=== PATIENT | female | born 1970 | race Caucasian/White ===

== ENCOUNTER 2017-09-29 19:31 | Emergency (ER) | payer OTHER ==
[~2017-09-29] VITALS: Ht 154.9 cm; Wt 77.6 kg
[~2017-09-29 19:31] MED LIST: CIPROFLOXACN500 MG PO; CLINDAMYCIN150 MG PO; CYTOTEC200 MCG PO; EXCEDRI1 OR; FIORICET PO; IMODIUM2 MG PO; KLONOPIN0.5 MG OR; LEVACET PO; LORTAB 7.5 PO; LORTAB5 PO; PAXIL CR25 MG OR; PAXIL30 MG PO; TYLENOL325 MG PO; XANAX0.25 MG PO; XANAX0.5 MG OR
[2017-09-29] MEDS ORDERED: PAROXETINE HCL30 MG PO (19:56)
[2017-09-29] MEDS ORDERED: ALPRAZOLAM0.5 M2 PO (19:57)
[2017-09-29 20:31] LABS: INFLUENZA A NONE DETECTED (NONE DETECT)
[2017-09-29 20:32] LABS: INFLUENZA B NONE DETECTED (NONE DETECT)
[2017-09-29] MEDS ORDERED: ZPAK PO (20:35)
[2017-09-29] MEDS ORDERED: CLARITIN10 M1 PO (20:35)
[2017-09-29 20:45] VITALS: BP 125/77
== END 2017-09-29 20:45 | disposition home or self-care (01) | DRG 153 ==
LOC: ED 19:31
PROVIDERS: Emergency Medicine
DX: J02.0 Streptococcal pharyngitis (principal); R50.9 Fever, unspecified; R59.9 Enlarged lymph nodes, unspecified

== ENCOUNTER 2017-10-04 18:44 | Emergency (ER) | payer OTHER ==
[~2017-10-04] VITALS: Ht 154.9 cm; Wt 72.0 kg
[~2017-10-04 18:44] MED LIST changes: +ALPRAZOLAM0.5 M2 PO; +CLARITIN10 M1 PO; +PAROXETINE HCL30 MG PO; +ZPAK PO
[2017-10-04 19:43] LABS: HEMATOCRIT 40.6 % (37.0-47.0); HEMOGLOBIN 13.8 g/dl (12.0-16.0); IMMATURE GRANULOCYTES 0.3 % (0.0-1.0); MEAN CELL VOLUME 93.1 fL CALC (80.0-100.0); MEAN CORPUSCULAR HGB 31.7 pG CALC (26.0-32.0); NEUT# 4.01 thou/uL (2.00-7.15); RED BLOOD COUNT 4.36 mill/uL (4.20-5.60); RED CELL DISTRI WIDTH 11.8 % (11.5-15.5)
[2017-10-04 20:34] LABS: ALBUMIN 4.2 g/dL (3.2-5.0); ALKALINE PHOSPHATASE 67 u/l (38-126); AMYLASE 160 u/l (30-110); ANION GAP 15 (6-22 (CALC)); BILIRUBIN, TOTAL 0.4 mg/dL (0.0-1.4); BUN 12 mg/dL (7-17); BUN/CREATININE RATIO 16 (12-20 (CALC)); CALCIUM 9.9 mg/dL (8.4-10.2); CARBON DIOXIDE 23 mmol/l (22-30); CHLORIDE 107 mmol/l (95-108); CREATININE 0.7 mg/dL (0.5-1.0); GFR > 60 ML/MIN (>=60 (CALC)); GFR FOR AFR.AMER. > 60 ML/MIN (>=60 (CALC)); GLUCOSE 115 mg/dL (65-105); LIPASE 80 u/l (23-300); SGOT/AST 23 u/l (14-36); SGPT/ALT 24 u/l (9-52); SODIUM 142 mmol/l (137-146); TOTAL PROTEIN 7.1 g/dL (6.3-8.2)
[2017-10-04] MEDS ORDERED: CLINDAMYCIN300 M1 PO (22:47)
[2017-10-04] MEDS ORDERED: PERCOCET 5/325M1 TAB PO (22:47)
[2017-10-04 23:40] VITALS: BP 130/80
== END 2017-10-04 23:40 | disposition home or self-care (01) | DRG 603 ==
LOC: ED 18:44
PROVIDERS: Emergency Medicine
DX: L03.221 Cellulitis of neck (principal); R22.0 Localized swelling, mass and lump, head
CPT/HCPCS: J2060; Q9967

== ENCOUNTER 2017-10-07 18:04 | Inpatient (IN) | payer OTHER ==
[~2017-10-07] VITALS: Ht 154.9 cm; Wt 68.8 kg
[~2017-10-07 18:04] MED LIST changes: +CLINDAMYCIN300 M1 PO; +PERCOCET 5/325M1 TAB PO
--- NOTE | 2017-10-07 18:15 | NUR ---
PT RETURNED TO LOBBY TO WAIT FOR AVAILABLE ROOM.
--- NOTE | 2017-10-07 18:30 | NUR ---
PT TO ROOM W/STREADY GAIT.
[2017-10-07 19:40] LABS: HEMATOCRIT 38.9 % (37.0-47.0); HEMOGLOBIN 13.3 g/dl (12.0-16.0); IMMATURE GRANULOCYTES 0.4 % (0.0-1.0); MEAN CELL VOLUME 92.6 fL CALC (80.0-100.0); MEAN CORPUSCULAR HGB 31.7 pG CALC (26.0-32.0); MEAN CORPUSCULAR HGB CONC 34.2 g/L CALC (32.0-36.0); NEUT# 5.4 thou/uL (2.00-7.15); RED BLOOD COUNT 4.2 mill/uL (4.20-5.60); RED CELL DISTRI WIDTH 11.9 % (11.5-15.5)
[2017-10-07 19:42] LABS: URINE BILIRUBIN - DIPSTICK NEGATIVE (NEGATIVE); URINE BLOOD DIPSTICK TRACE-LYSED (NEGATIVE); URINE COLOR YELLOW; URINE GLUCOSE - DIPSTICK NEGATIVE (NEGATIVE); URINE KETONE NEGATIVE (NEGATIVE); URINE LEUK ESTERASE NEGATIVE (NEGATIVE); URINE NITRITE - DIPSTICK NEGATIVE (Negative); URINE PH 5.5 (4.5-8.0); URINE PROTEIN - DIPSTICK NEGATIVE (NEG-TRACE); URINE UROBILINOGEN - DIPSTICK 0.2 E.U./dL (0.2)
[2017-10-07 19:45] LABS: URINE CLARITY CLEAR
[2017-10-07 19:59] LABS: ALBUMIN 4.6 g/dL (3.2-5.0); ALKALINE PHOSPHATASE 75 u/l (38-126); ANION GAP 14 (6-22 (CALC)); BILIRUBIN, TOTAL 0.3 mg/dL (0.0-1.4); BUN 12 mg/dL (7-17); BUN/CREATININE RATIO 15 (12-20 (CALC)); CARBON DIOXIDE 26 mmol/l (22-30); CHLORIDE 106 mmol/l (95-108); CREATININE 0.8 mg/dL (0.5-1.0); GFR > 60 ML/MIN (>=60 (CALC)); GFR FOR AFR.AMER. > 60 ML/MIN (>=60 (CALC)); POTASSIUM 3.5 mmol/l (3.5-5.1); SGOT/AST 22 u/l (14-36); SGPT/ALT 31 u/l (9-52); SODIUM 143 mmol/l (137-146); TOTAL PROTEIN 7.7 g/dL (6.3-8.2)
--- NOTE | 2017-10-07 20:58 | NUR ---
PT WITH VANCO AND NS RUNNING. VANCO WAS TURNED DOWN TO 50 ML/HR PT WAS STARTING TO HAVE A PANIC ATTACK BASED ON THE WAY THE VANCO WAS MAKING HER FEEL. NO ACUTE DISTRESS NOTED. PT RESTS IN THE STRETCHER WITH MOTHER AT BEDSIDE.
--- NOTE | 2017-10-07 22:28 | NUR ---
at bedside. discussing admission
--- NOTE | 2017-10-07 22:29 | NUR ---
pt given sandwich/gingerale/gatorade.
--- NOTE | 2017-10-07 22:44 | NUR ---
Report to [place], Pt being admitted to [id number]
[2017-10-07 22:45] VITALS: BP 137/76
--- NOTE | 2017-10-07 22:45 | NUR ---
PT ARRIVED TO FLOOR WITH ER STAFF. PT AMBULATED TO SCALE, THEN TO BED. VITAL SIGNS OBTAINED. PT ORIENTED TO ROOM AND CALL LIGHT SYSTEM. RESP EVEN AND UNLABORED. LUNGS CLEAR BILAT. NO DISTRESS NOTED. ABD SOFT; ACTIVE BOWEL SOUNDS. PT STATED BM THIS AM. PEDAL PULSES PALPATED BILAT. IV LAC PATENT; NO REDNESS OR EDEMA NOTED. PT STATES AN ACHING IN THROAT. SAFETY PRECAUTIONS REINFORCED. PT ENCOURAGED TO CALL FOR ASSISTANCE. FREQUENT ROUNDS MADE. CALL LIGHT WITHIN REACH.
--- NOTE | 2017-10-07 23:40 | NUR ---
DR NOTIFIED OF ADMIT. DR NOTIFIED OF ACHING IN PT THROAT; NEW ORDER RECIEVED.
--- NOTE | 2017-10-08 00:47 | NUR ---
PT OOB TO BATHROOM; VOIDED 400 CLEAR YELLOW URINE. PT ASSISTED BACK TO BED. RESP EVEN AND UNLABORED. NO DISTRESS NOTED. CALL LIGHT WITHIN REACH.
--- NOTE | 2017-10-08 04:07 | NUR ---
PT DENIES ANY PAIN OR DISCOMFORT. RESP EVEN AND UNLABORED. ASSESSMENT UNCHANGED. SAFETY PRECAUTIONS REINFORCED. CALL LIGHT WITHIN REACH.
[2017-10-08 04:45] VITALS: BP 119/77
--- NOTE | 2017-10-08 08:02 | NUR ---
PT.SITTING UPRIGHT IN BED WITH BREAKFAST AT BEDSIDE. V/S ASSESSED, PT.DENIES ANY NEEDS AT THIS TIME. CALL LIGHT AT SIDE AND PT.INSTRUCTED TO CALL IF ANY NEEDS ARISE.
[2017-10-08 08:03] VITALS: BP 134/74
--- NOTE | 2017-10-08 12:00 | NUR ---
MEDICATION FOR MIGRAINE ARRIVED TO FLOOR VIA AUTOMOBILE BODY REPAIRER, ENTERED PT.ROOM TO ADMINISTER MEDICATION, BUT PT WAS SLEEPING AND DID NOT AWAKE TO MY ENTERING ROOM. I WILL FOLLOW-UP WITH MEDICATION NEEDED. NO S/S OF DISTRESS AT THIS TIME. CALL LIGHT AT SIDE
--- NOTE | 2017-10-08 13:57 | NUR ---
PT.MEDICATED FOR ANXIETY AND WITH ANTIBIOTIC IV THERAPY. PT.IS VERY ANXIOUS ABOUT RECEIVING ANTIBIOTIC THERAPY STATING THAT SHE HAS HAD BAD ALLERGIC REACTIONS TO MEDICATIONS IN THE PAST AND WORRIES ABOUT TAKING THEM." I REASURED PT.THAT I WOULD COME DISCONTINUE MEDICATION IF SHE NEEDED ME TO AND REINFORCED CALL SYSTEM. I REMAINED WITH PT.FOR FIRST 10 MINUTES OF MEDICAION RUNNING FOR COMFORT.
[2017-10-08 15:35] VITALS: BP 126/80
--- NOTE | 2017-10-08 16:02 | NUR ---
Patient is doing fine and improving. Patient denied any side effects and also stated that her headache is gone, overall she feels better.c
--- NOTE | 2017-10-08 18:43 | NUR ---
PT.UPRIGHT IN BED W/KIDS AT BEDSIDE VISITING. POC DISCUSSED AND MEDICATIONS LIST REVIEWED. DENIES ANY OTHER NEEDS AT THIS TIME. PT.INSTRUCTED TO CALL
[2017-10-08 19:20] VITALS: BP 134/86
--- NOTE | 2017-10-08 20:11 | NUR ---
PT SITTING IN BED WATCHING TV, NO SIGNS OF DISTRESS NOTED. RESP EVEN AND UNLABORED. PT ALERT AND ORIENTED X3, NO EDEMA, DENIES TEDS. PT ANXIOUS DUE TO ANTIBIOTIC TREATMENT. STATES,"I DON'T WANT TO GET CDIFF". [employer] SPECIALIST NOTIFIED AND WILL START PROBIOTIC IN AM. PT APPRECIATIVE. NOTED AREA TO L JAW SLIGHTLY SWOLLEN, NON-TENDER. NO REDNESS NOTED. VOICES NO NEEDS OR COMPLAINTS AT THIS TIME. ASSESSMENT COMPLETED AT THIS TIME. CALL LIGHT IN REACH,CONTINUE TO MONITOR.
--- NOTE | 2017-10-08 21:45 | NUR ---
PT C/O MIGRAINE, FIORCET GIVEN. CALL LIGHT IN REACH,CONTINUE TO MONITOR.
--- NOTE | 2017-10-09 01:32 | NUR ---
PT WATCHING TV, NO SIGNS OF DISTRESS NOTED, RESP EVEN AND UNLABORED. VOICES NO NEEDS OR COMPLAINTS AT THIS TIME. CALL LIGHT IN REACH.CONTINUE TO MONITOR.
--- NOTE | 2017-10-09 04:03 | NUR ---
PT RESTING IN BED, NO SIGNS OF DISTRESS NOTED, RESP EVEN AND UNLABORED. VOICES NO NEEDS OR COMPLAINTS AT THIS TIME. CALL LIGHT IN REACH,CONTINUE TO MONITOR.
[2017-10-09 04:13] VITALS: BP 121/81
[2017-10-09 05:11] LABS: HEMATOCRIT 36.2 % (37.0-47.0); HEMOGLOBIN 12.6 g/dl (12.0-16.0); IMMATURE GRANULOCYTES 0.4 % (0.0-1.0); MEAN CELL VOLUME 93.1 fL CALC (80.0-100.0); MEAN CORPUSCULAR HGB 32.4 pG CALC (26.0-32.0); MEAN CORPUSCULAR HGB CONC 34.8 g/L CALC (32.0-36.0); NEUT# 2.89 thou/uL (2.00-7.15); RED BLOOD COUNT 3.89 mill/uL (4.20-5.60); RED CELL DISTRI WIDTH 11.8 % (11.5-15.5)
[2017-10-09 05:37] LABS: ANION GAP 14 (6-22 (CALC)); BUN 9 mg/dL (7-17); BUN/CREATININE RATIO 12 (12-20 (CALC)); CARBON DIOXIDE 25 mmol/l (22-30); CHLORIDE 107 mmol/l (95-108); CREATININE 0.7 mg/dL (0.5-1.0); GFR > 60 ML/MIN (>=60 (CALC)); GFR FOR AFR.AMER. > 60 ML/MIN (>=60 (CALC)); MAGNESIUM 1.9 mg/dL (1.6-2.3); POTASSIUM 4.1 mmol/l (3.5-5.1); SODIUM 141 mmol/l (137-146)
--- NOTE | 2017-10-09 06:08 | NUR ---
PT RESTING IN BED WITH EYES CLOSED, NO SIGNS OF DISTRESS NOTED, RESP EVEN AND UNLABORED. CALL LIGHT IN REACH, CONTINUE TO MONITOR.
--- NOTE | 2017-10-09 07:00 | NUR ---
SHIFT CHANGE REPORT FROM LUIS, PT SLEEPING AT THIS ITME. BREATHING EVEN AND NON-LABORED, NO SIGN DISCOMFORT, NIGHT NURSE REPORTED PT HAD A SLEEPLESS NIGHT THEREFORE SHE WAS NOT AWAKENED BY STAFF AT THIS TIME. WILL CONTINUE TO MONITOR, CALL DEL RIO IN REACH.
--- NOTE | 2017-10-09 08:01 | NUR ---
Vancomycin consult Age: 47 years Weight: 68.8 kg Height: 154.94 cm Gender: Female SCR: 0.7 mg/dl Dosing weight: 56.2 kg IBW: 47.80 kg CRCL (ml/min): 76.6 Gamaliel (hr-1): 0.068 Half-life (hrs): 10.19 Vd (liters): 48.16 (factor: 0.7 L/kg) Vancomycin 1000 mg Q12H to produce a predicted peak of 35 mcg/ml and a predicted trough of 18 mcg/ml based on (Population-based pharmacokinetic analysis).
[2017-10-09 08:30] VITALS: BP 118/78
--- NOTE | 2017-10-09 09:41 | NUR ---
PT SUPINE IN BED. DENIES PAIN. REPORTS "I JUST FEEL CRAPPY, YA KNOW? NOT ACTUAL PAIN." REPORTING OF CONCERNS ENCOURAGED. PLAN OF CARE DISCUSSED. PT EDUCATED ON IV ABX, INDICATION AND SCHEDULES. CALL LIGHT REVIEWED AND IN REACH. PT STATES UNDERSTANDING.
--- NOTE | 2017-10-09 12:37 | NUR ---
SITTING UP IN BED AT THIS TIME EATING MEAL, C/O HEADACHE AND CONCERN ADDRESSED. PT REQUESTED FOR VANCOMYCIN TO INFUSE AT A LOWER RATE THAN RECOMMENDED (100ML/HR INSTEAD OF 125 ML/HR). ALL NEEDS ADDRESSED, WILL CONTINUE TO MONITOR.
[2017-10-09] MEDS ORDERED: BACTRIM DS1 TAB PO (13:03)
[2017-10-09] MEDS ORDERED: FLORASTOR250 M1 PO (13:03)
[2017-10-09] MEDS ORDERED: Levaquin PO (13:03)
--- NOTE | 2017-10-09 15:26 | NUR ---
Discharge instructions given. Patient verbalizes understanding of same. Discharged in good condition via Ambulatory to Home with family. All belongings sent with pt.
== END 2017-10-09 15:21 | disposition home or self-care (01) | DRG 603 ==
LOC: ED 18:04 → ED-I 22:15 → ED 22:30 → MS2 22:31
PROVIDERS: Emergency Medicine; Nurse Practitioner Family; ADMIT Internal Medicine; ATTEND Internal Medicine
DX: L03.211 Cellulitis of face (principal); H70.92 Unspecified mastoiditis, left ear; F41.1 Generalized anxiety disorder; J02.0 Streptococcal pharyngitis; G43.909 Migraine, unspecified, not intractable, without status migrainosus; H66.92 Otitis media, unspecified, left ear; K04.7 Periapical abscess without sinus; Z88.0 Allergy status to penicillin; Z87.891 Personal history of nicotine dependence
CPT/HCPCS: Q9967

== ENCOUNTER 2017-11-24 23:07 | Emergency (ER) | payer OTHER ==
[~2017-11-24] VITALS: Ht 154.9 cm; Wt 78.4 kg
[~2017-11-24 23:07] MED LIST changes: +BACTRIM DS1 TAB PO; +FLORASTOR250 M1 PO; +Levaquin PO
[2017-11-25 00:34] LABS: HEMATOCRIT 39.3 % (37.0-47.0); HEMOGLOBIN 13.3 g/dl (12.0-16.0); IMMATURE GRANULOCYTES 0.4 % (0.0-1.0); MEAN CELL VOLUME 93.8 fL CALC (80.0-100.0); MEAN CORPUSCULAR HGB 31.7 pG CALC (26.0-32.0); MEAN CORPUSCULAR HGB CONC 33.8 g/L CALC (32.0-36.0); NEUT# 5.57 thou/uL (2.00-7.15); RED BLOOD COUNT 4.19 mill/uL (4.20-5.60); RED CELL DISTRI WIDTH 12.1 % (11.5-15.5)
[2017-11-25 00:43] LABS: ALBUMIN 4.1 g/dL (3.2-5.0); ALKALINE PHOSPHATASE 94 u/l (38-126); ANION GAP 14 (6-22 (CALC)); BILIRUBIN, TOTAL 0.3 mg/dL (0.0-1.4); BUN 10 mg/dL (7-17); BUN/CREATININE RATIO 12 (12-20 (CALC)); CARBON DIOXIDE 30 mmol/l (22-30); CHLORIDE 100 mmol/l (95-108); CREATININE 0.8 mg/dL (0.5-1.0); GFR > 60 ML/MIN (>=60 (CALC)); GFR FOR AFR.AMER. > 60 ML/MIN (>=60 (CALC)); POTASSIUM 4.1 mmol/l (3.5-5.1); SGOT/AST 27 u/l (14-36); SGPT/ALT 37 u/l (9-52); SODIUM 140 mmol/l (137-146); TOTAL PROTEIN 7.1 g/dL (6.3-8.2)
[2017-11-25] MEDS ORDERED: CLEOCIN300 MG PO (02:44)
[2017-11-25] MEDS ORDERED: PERCOCET 10/31 COMBO PO (02:44)
[2017-11-25 03:01] VITALS: BP 142/63
== END 2017-11-25 03:09 | disposition home or self-care (01) | DRG 603 ==
LOC: ED 23:07
PROVIDERS: Emergency Medicine
DX: L03.211 Cellulitis of face (principal); K08.499 Partial loss of teeth due to other specified cause, unspecified class

== ENCOUNTER 2017-12-23 10:50 | Emergency (ER) | payer OTHER ==
[~2017-12-23] VITALS: Ht 154.9 cm; Wt 75.0 kg
[~2017-12-23 10:50] MED LIST changes: +CLEOCIN300 MG PO; +PERCOCET 10/31 COMBO PO
[2017-12-23] MEDS ORDERED: APTIOM200 MG PO (11:47)
[2017-12-23 12:12] LABS: HEMATOCRIT 40.9 % (37.0-47.0); HEMOGLOBIN 13.6 g/dl (12.0-16.0); IMMATURE GRANULOCYTES 0.4 % (0.0-1.0); MEAN CELL VOLUME 94.5 fL CALC (80.0-100.0); MEAN CORPUSCULAR HGB 31.4 pG CALC (26.0-32.0); MEAN CORPUSCULAR HGB CONC 33.3 g/L CALC (32.0-36.0); NEUT# 4.74 thou/uL (2.00-7.15); RED BLOOD COUNT 4.33 mill/uL (4.20-5.60); RED CELL DISTRI WIDTH 11.9 % (11.5-15.5)
[2017-12-23 12:28] LABS: ANION GAP 15 (6-22 (CALC)); BUN 15 mg/dL (7-17); BUN/CREATININE RATIO 18 (12-20 (CALC)); CARBON DIOXIDE 26 mmol/l (22-30); CHLORIDE 102 mmol/l (95-108); CREATININE 0.9 mg/dL (0.5-1.0); GFR > 60 ML/MIN (>=60 (CALC)); GFR FOR AFR.AMER. > 60 ML/MIN (>=60 (CALC)); POTASSIUM 4.4 mmol/l (3.5-5.1); SODIUM 139 mmol/l (137-146)
[2017-12-23 12:59] VITALS: BP 142/70
== END 2017-12-23 13:14 | disposition home or self-care (01) | DRG 101 ==
LOC: ED 10:50
PROVIDERS: Family Medicine
DX: R56.9 Unspecified convulsions (principal); R53.1 Weakness
CPT/HCPCS: J2060

== ENCOUNTER 2018-01-24 09:23 | Emergency (ER) | payer OTHER ==
[~2018-01-24] VITALS: Ht 154.9 cm; Wt 77.0 kg
[~2018-01-24 09:23] MED LIST changes: +APTIOM200 MG PO
[2018-01-24] MEDS ORDERED: CLINDAMYCIN300 M1 PO (09:49)
[2018-01-24] MEDS ORDERED: METRONIDAZOL500 MG PO (10:19)
[2018-01-24 12:53] VITALS: BP 117/60
== END 2018-01-24 12:53 | disposition home or self-care (01) | DRG 159 ==
LOC: ED 09:23
DX: K12.2 Cellulitis and abscess of mouth (principal); F41.9 Anxiety disorder, unspecified

== ENCOUNTER 2018-04-28 08:56 | Emergency (ER) | payer OTHER ==
[~2018-04-28] VITALS: Ht 154.9 cm; Wt 80.0 kg
[~2018-04-28 08:56] MED LIST changes: +METRONIDAZOL500 MG PO
[2018-04-28 10:22] LABS: HEMATOCRIT 37.9 % (37.0-47.0); HEMOGLOBIN 13.1 g/dl (12.0-16.0); IMMATURE GRANULOCYTES 0.4 % (0.0-5.0); MEAN CELL VOLUME 94.3 fL CALC (80.0-100.0); MEAN CORPUSCULAR HGB 32.6 pG CALC (26.0-32.0); MEAN CORPUSCULAR HGB CONC 34.6 g/L CALC (32.0-36.0); NEUT# 6.83 thou/uL (2.00-7.15); RED BLOOD COUNT 4.02 mill/uL (4.20-5.60); RED CELL DISTRI WIDTH 12.3 % (11.5-15.5)
[2018-04-28 10:24] LABS: ALBUMIN 3.9 g/dL (3.2-5.0); ALKALINE PHOSPHATASE 77 u/l (38-126); BILIRUBIN, TOTAL 0.4 mg/dL (0.0-1.4); BUN 11 mg/dL (7-17); BUN/CREATININE RATIO 18 (12-20 (CALC)); CARBON DIOXIDE 24 mmol/l (22-30); CHLORIDE 106 mmol/l (95-108); CREATININE 0.6 mg/dL (0.5-1.0); GFR > 60 ML/MIN (>=60 (CALC)); GFR FOR AFR.AMER. > 60 ML/MIN (>=60 (CALC)); LIPASE 56 u/l (23-300); SGOT/AST 24 u/l (14-36); SGPT/ALT 40 u/l (9-52); SODIUM 141 mmol/l (137-146); TOTAL PROTEIN 7.1 g/dL (6.3-8.2)
[2018-04-28 10:26] LABS: ANION GAP 15 (6-22 (CALC))
[2018-04-28] MEDS ORDERED: PROTONIX40 MG PO (12:31)
[2018-04-28 13:01] VITALS: BP 141/72
== END 2018-04-28 13:00 | disposition home or self-care (01) | DRG 313 ==
LOC: ED 08:56
PROVIDERS: Emergency Medicine
DX: R07.89 Other chest pain (principal); F41.9 Anxiety disorder, unspecified

== ENCOUNTER 2020-04-02 09:48 | Emergency (ER) | payer OTHER ==
[~2020-04-02] VITALS: Ht 154.9 cm; Wt 81.0 kg
[~2020-04-02 09:48] MED LIST changes: +HYDROXYZ HCL25 MG PO; +PROTONIX40 MG PO
[2020-04-02] MEDS ORDERED: ZITHROMAX250 MG PO (10:10)
[2020-04-02 10:13] VITALS: BP 154/70
== END 2020-04-02 10:20 | disposition home or self-care (01) | DRG 153 ==
LOC: ED 09:48
DX: J02.9 Acute pharyngitis, unspecified (principal); Z20.818 Contact with and (suspected) exposure to other bacterial communicable diseases

== ENCOUNTER 2020-04-18 17:34 | Emergency (ER) | payer OTHER ==
[~2020-04-18] VITALS: Ht 154.9 cm; Wt 77.3 kg
[~2020-04-18 17:34] MED LIST changes: +ZITHROMAX250 MG PO
[2020-04-18 20:58] VITALS: BP 144/74
== END 2020-04-18 20:58 | disposition home or self-care (01) | DRG 866 ==
LOC: ED 17:34
DX: B34.9 Viral infection, unspecified (principal); Z20.828 Contact with and (suspected) exposure to other viral communicable diseases

== ENCOUNTER 2021-04-24 20:54 | Emergency (ER) | payer OTHER ==
[~2021-04-24 20:54] MED LIST changes: +PAROXETINE HCL20 MG PO; -PAROXETINE HCL30 MG PO
[2021-04-24 22:32] LABS: HEMATOCRIT 36.6 % (37.0-47.0); HEMOGLOBIN 12.6 g/dl (12.0-16.0); IMMATURE GRANULOCYTES 0.6 % (0.0-5.0); MEAN CORPUSCULAR HGB 31.7 pG CALC (26.0-32.0); MEAN CORPUSCULAR HGB CONC 34.4 g/dL CAL (32.0-36.0); NEUT# 5.28 thou/uL (2.00-7.15); RED BLOOD COUNT 3.98 mill/uL (4.20-5.60); RED CELL DISTRI WIDTH 12.1 % (11.5-15.5)
[2021-04-24 22:33] LABS: URINE BILIRUBIN - DIPSTICK NEGATIVE (NEGATIVE); URINE BLOOD DIPSTICK SMALL (NEGATIVE); URINE COLOR YELLOW; URINE GLUCOSE - DIPSTICK NEGATIVE (NEGATIVE); URINE KETONE NEGATIVE (NEGATIVE); URINE LEUK ESTERASE NEGATIVE (NEGATIVE); URINE PROTEIN - DIPSTICK NEGATIVE (NEG-TRACE); URINE UROBILINOGEN - DIPSTICK 0.2 E.U./dL (0.2)
[2021-04-24 22:38] LABS: URINE NITRITE - DIPSTICK NEGATIVE (Negative)
[2021-04-24 22:45] LABS: URINE SQUAMOUS EPITHELIAL CELL FEW EPI/hpf (0-FEW); URINE WBC 0-2 WBC/hpf (0-5)
[2021-04-24 23:01] LABS: ALBUMIN 3.9 g/dL (3.2-5.0); ALKALINE PHOSPHATASE 80 u/l (38-126); AMYLASE 66 u/l (30-110); ANION GAP 12 (6-22 (CALC)); BILIRUBIN, TOTAL 0.4 mg/dL (0.0-1.4); BUN 15 mg/dL (7-17); BUN/CREATININE RATIO 22 (12-20 (CALC)); CARBON DIOXIDE 28 mmol/l (22-30); CHLORIDE 98 mmol/l (95-108); CREATININE 0.7 mg/dL (0.5-1.0); GFR > 60 ML/MIN (>=60 (CALC)); GFR FOR AFR.AMER. > 60 ML/MIN (>=60 (CALC)); LIPASE 250 u/l (23-300); POTASSIUM 3.7 mmol/l (3.5-5.1); SGOT/AST 25 u/l (14-36); SODIUM 135 mmol/l (137-146); TOTAL PROTEIN 7.2 g/dL (6.3-8.2)
[2021-04-25 02:09] VITALS: BP 169/84
== END 2021-04-25 01:30 | disposition home or self-care (01) | DRG 392 ==
LOC: ED 20:54
DX: R10.11 Right upper quadrant pain (principal); F41.9 Anxiety disorder, unspecified; Z90.49 Acquired absence of other specified parts of digestive tract
CPT/HCPCS: J2060; Q9967

== ENCOUNTER 2021-05-04 22:24 | Emergency (ER) | payer OTHER ==
[~2021-05-04] VITALS: Ht 157.5 cm; Wt 79.5 kg
[2021-05-04] MEDS ORDERED: CLINDAMYCIN300 M1 PO (23:01)
[2021-05-04 23:30] VITALS: BP 149/86
== END 2021-05-04 23:59 | disposition home or self-care (01) | DRG 159 ==
LOC: ED 22:24
DX: K04.7 Periapical abscess without sinus (principal); F41.9 Anxiety disorder, unspecified

== ENCOUNTER 2021-08-04 09:41 | Emergency (ER) | payer OTHER ==
[~2021-08-04] VITALS: Ht 157.5 cm; Wt 71.0 kg
[2021-08-04 11:14] LABS: HCG SERUM/URINE (NEG/POS) NEGATIVE (NEGATIVE)
[2021-08-04 11:18] LABS: HEMATOCRIT 48.6 % (37.0-47.0); HEMOGLOBIN 16.7 g/dl (12.0-16.0); IMMATURE GRANULOCYTES 0.4 % (0.0-5.0); MEAN CELL VOLUME 91.2 fL CALC (80.0-100.0); MEAN CORPUSCULAR HGB 31.3 pG CALC (26.0-32.0); MEAN CORPUSCULAR HGB CONC 34.4 g/dL CAL (32.0-36.0); NEUT# 4.97 thou/uL (2.00-7.15); RED BLOOD COUNT 5.33 mill/uL (4.20-5.60); RED CELL DISTRI WIDTH 11.9 % (11.5-15.5)
[2021-08-04 11:23] LABS: URINE BLOOD DIPSTICK SMALL (NEGATIVE); URINE COLOR YELLOW; URINE GLUCOSE - DIPSTICK NEGATIVE (NEGATIVE); URINE KETONE TRACE mg/dL (NEGATIVE); URINE LEUK ESTERASE NEGATIVE (NEGATIVE); URINE PROTEIN - DIPSTICK 30 mg/dL (NEG-TRACE); URINE SPECIFIC GRAVITY 1.025; URINE UROBILINOGEN - DIPSTICK 0.2 E.U./dL (0.2)
[2021-08-04 11:30] LABS: URINE BILIRUBIN - DIPSTICK NEGATIVE (NEGATIVE); URINE NITRITE - DIPSTICK NEGATIVE (Negative)
[2021-08-04 11:32] LABS: AMYLASE 65 u/l (30-110); BUN 23 mg/dL (7-17); BUN/CREATININE RATIO 22 (12-20 (CALC)); CHLORIDE 100 mmol/l (95-108); CREATININE 1.1 mg/dL (0.5-1.0); GFR 53 ML/MIN (>=60 (CALC)); GFR FOR AFR.AMER. > 60 ML/MIN (>=60 (CALC)); LIPASE 49 u/l (23-300); POTASSIUM 3.8 mmol/l (3.5-5.1); SGOT/AST 34 u/l (14-36); SODIUM 137 mmol/l (137-146)
[2021-08-04 11:33] LABS: ALBUMIN 5.1 g/dL (3.2-5.0); ALKALINE PHOSPHATASE 140 u/l (38-126); ANION GAP 20 (6-22 (CALC)); BILIRUBIN, TOTAL 0.8 mg/dL (0.0-1.4); CARBON DIOXIDE 21 mmol/l (22-30); TOTAL PROTEIN 9.4 g/dL (6.3-8.2)
[2021-08-04 11:36] LABS: URINE BACTERIA FEW hpf; URINE MUCUS FEW hpf (NONE-FEW); URINE SQUAMOUS EPITHELIAL CELL FEW EPI/hpf (0-FEW); URINE WBC 0-2 WBC/hpf (0-5)
[2021-08-04] MEDS ORDERED: HYDROCO/APAP1 TA9 PO (16:17)
[2021-08-04 17:00] VITALS: BP 164/93
== END 2021-08-04 17:00 | disposition home or self-care (01) | DRG 392 ==
LOC: ED 09:41
DX: A08.0 Rotaviral enteritis (principal); E86.0 Dehydration; F41.9 Anxiety disorder, unspecified; Z20.822 Contact with and (suspected) exposure to COVID-19
CPT/HCPCS: Q9967; S0164

== ENCOUNTER 2021-10-22 01:25 | Emergency (ER) | payer OTHER ==
[~2021-10-22] VITALS: Ht 157.5 cm; Wt 73.0 kg
[~2021-10-22 01:25] MED LIST changes: +HYDROCO/APAP1 TA9 PO
[2021-10-22] MEDS ORDERED: TORADOL PO (02:10)
[2021-10-22 02:25] VITALS: BP 164/74
== END 2021-10-22 05:14 | disposition home or self-care (01) | DRG 74 ==
LOC: ED 01:25
DX: G90.01 Carotid sinus syncope (principal); F41.9 Anxiety disorder, unspecified

== ENCOUNTER 2022-03-18 00:17 | Emergency (ER) | payer OTHER ==
[~2022-03-18] VITALS: Ht 157.5 cm; Wt 60.0 kg
[~2022-03-18 00:17] MED LIST changes: +TORADOL PO
[2022-03-18] MEDS ORDERED: TORADOL PO (00:50)
[2022-03-18 00:53] VITALS: BP 151/86
== END 2022-03-18 01:07 | disposition home or self-care (01) | DRG 74 ==
LOC: ED 00:17
DX: G90.01 Carotid sinus syncope (principal)

== ENCOUNTER 2022-10-02 16:04 | Emergency (ER) | payer OTHER ==
[~2022-10-02] VITALS: Ht 157.5 cm; Wt 81.6 kg
[2022-10-02 18:02] LABS: URINE BILIRUBIN - DIPSTICK NEGATIVE (NEGATIVE); URINE BLOOD DIPSTICK SMALL (NEGATIVE); URINE COLOR YELLOW; URINE GLUCOSE - DIPSTICK NEGATIVE (NEGATIVE); URINE KETONE NEGATIVE (NEGATIVE); URINE LEUK ESTERASE NEGATIVE (NEGATIVE); URINE PROTEIN - DIPSTICK NEGATIVE (NEG-TRACE); URINE SPECIFIC GRAVITY >=1.030; URINE UROBILINOGEN - DIPSTICK 0.2 E.U./dL (0.2)
[2022-10-02 18:02] LABS: BASO% 0.3 % (0-3); EOS% 0.7 % (0-8); IMMATURE GRANULOCYTES 0.1 % (0.0-5.0); LYMPH% 30.5 % (15-41); MEAN CELL VOLUME 92.2 fL CALC (80.0-100.0); MEAN CORPUSCULAR HGB 31.2 pG CALC (26.0-32.0); MEAN CORPUSCULAR HGB CONC 33.9 g/dL CAL (32.0-36.0); MONO% 6.8 % (2-13); NEUT# 4.52 thou/uL (2.00-7.15); NEUT% 61.6 % (42-76); RED BLOOD COUNT 4.1 mill/uL (4.20-5.60); RED CELL DISTRI WIDTH 11.9 % (11.5-15.5)
[2022-10-02 18:03] LABS: URINE NITRITE - DIPSTICK NEGATIVE (Negative)
[2022-10-02 18:05] LABS: HEMATOCRIT 37.8 % (37.0-47.0); HEMOGLOBIN 12.8 g/dl (12.0-16.0)
[2022-10-02 18:12] LABS: URINE SQUAMOUS EPITHELIAL CELL MANY EPI/hpf (0-FEW)
[2022-10-02 18:19] LABS: ALBUMIN 4.3 g/dL (3.2-5.0); ALKALINE PHOSPHATASE 113 u/l (38-126); BUN 17 mg/dL (7-17); BUN/CREATININE RATIO 23 (12-20 (CALC)); C-REACTIVE PROTEIN 1.4 mg/dL (0-0.9); CHLORIDE 100 mmol/l (95-108); CREATININE 0.7 mg/dL (0.5-1.0); GFR FOR AFR.AMER. > 60 ML/MIN (>=60 (CALC)); GFR OTHER RACES > 60 ML/MIN (>=60 (CALC)); POTASSIUM 3.4 mmol/l (3.5-5.1); SGOT/AST 24 u/l (14-36); SODIUM 133 mmol/l (137-146)
[2022-10-02 18:20] LABS: ANION GAP 9 (6-22 (CALC)); BILIRUBIN, TOTAL 0.2 mg/dL (0.0-1.4); CARBON DIOXIDE 27 mmol/l (22-30); TOTAL PROTEIN 7.2 g/dL (6.3-8.2)
[2022-10-02] MEDS ORDERED: OMNICEF300 MG PO (19:01)
[2022-10-02 20:00] VITALS: BP 168/93
== END 2022-10-02 20:01 | disposition home or self-care (01) | DRG 153 ==
LOC: ED 16:04
PROVIDERS: Nurse Practitioner
DX: H66.92 Otitis media, unspecified, left ear (principal)